=== PATIENT | male | born 1985 | race American Indian/Alaskan Native ===

== ENCOUNTER 2018-12-31 04:46 | Inpatient (IN) | payer OTHER ==
--- NOTE | 2018-12-31 05:16 | XRay Report ---
CHEST 1 VIEW INDICATION / CLINICAL INFORMATION: Chest Pain. COMPARISON: None available. FINDINGS: SUPPORT DEVICES: None. HEART / MEDIASTINUM: No significant abnormality. LUNGS / PLEURA: No significant pulmonary or pleural abnormality. No pneumothorax. ADDITIONAL FINDINGS: No significant additional findings. IMPRESSION: 1. No acute findings. Signer Name: Zaheer Schreiber MD Signed: 12/31/2018 5:12 AM Workstation Name: [id number]
[2018-12-31 05:30] LABS: Basophils # (Auto) 0.1 K/mm3 (0.0-0.1); Basophils % (Auto) 0.5 % (0.0-1.8); Eosinophils # (Auto) 0.5 K/mm3 (0.0-0.4); Eosinophils % (Auto) 3.6 % (0.0-4.3); Hematocrit 46.6 % (35.5-45.6); Hemoglobin 15.9 gm/dl (11.8-15.2); Lymphocytes # (Auto) 2.2 K/mm3 (1.2-5.4); Lymphocytes % (Auto) 17.2 % (13.4-35.0); Mean Corpuscular HGB Conc 34 % (32-34); Mean Corpuscular Volume 89 fl (84-94); Monocytes # (Auto) 0.9 K/mm3 (0.0-0.8); Monocytes % (Auto) 7.3 % (0.0-7.3); Platelet Count 228 K/mm3 (140-440); Red Blood Count 5.26 M/mm3 (3.65-5.03); Red Cell Distribution Width 14.3 % (13.2-15.2)
[2018-12-31 05:47] LABS: BUN/Creatinine Ratio 13; Blood Urea Nitrogen 15 mg/dL (9-20); Hemolysis Index 8
[2018-12-31] MEDS ORDERED: ASPIRIN PO ONE (06:28)
[2018-12-31] MEDS ORDERED: TORADOL IV ONE (06:28)
--- NOTE | 2018-12-31 06:44 | Emergency Department Report ---
ED Chest Pain HPI - General Chief Complaint: Chest Pain Stated Complaint: LT ARM PAIN CHEST PAIN Time Seen by Provider: 12/31/18 06:13 Source: patient Mode of arrival: Ambulatory Limitations: No Limitations - History of Present Illness Initial Comments: 33-year-old male came to the emergency department he had substernal chest tightness for less than admitted at 9 PM last night. His EKG was reviewed by my predecessor. It does have some significant abnormalities. There is no comparison EKG. Patient stated that the chest pain resolved in less than 1 minute. Later on he began to experience a soreness in his left arm. He'll tentatively called any weakness. Then he stated that he couldn't straighten out his arm because of pain but really didn't have any paralysis. He states the pain in his arm is augmented by arm movement. He states the arm symptoms are ongoing. He denies nausea vomiting sweating cough difficulty in breathing leg swelling or pain. The patient states that he flew back from [place] November 27. Does not refer any symptoms prior to last night. This not report any chest pain workup before. The patient has a history of atrial fibrillation treated with cardioversion at [facility] about a year ago. I have requested records. He was on a blood thinner for some time. He is currently taking amlodipine and metoprolol for hypertension. He does not report any family history of known coronary artery disease or venous thromboembolism. MD Complaint: chest pain -: Gradual Onset: during rest Pain Location: substernal Pain Radiation: other (not radiating but later left arm pain) Severity: moderate Quality: tightness Consistency: now resolved Improves With: nothing Worsens With: movement (arm pain with movement) re: denies: nausea, vomting, diaphoresis, dyspnea, sense of impending doom Other Symptoms: denies: cough, fever, syncope, rash, acid taste in mouth, leg swelling, palpitations, burping Treatments Prior to Arrival: none Aspirin use within the Past 7 Days: (0) No - Related Data Allergies Allergy/AdvReac Type Severity Reaction Status Date / Time No Known Allergies Allergy Unverified 12/31/18 04:55 Heart Score - HEART Score History: Moderately suspicious EKG: Non-specific Age: < 45 Risk factors: 1-2 risk factors Troponin: < normal limit HEART Score: 3 - Critical Actions Critical Actions: 0-3 pts:0.9-1.7%risk of adverse cardiac event.Candidate for discharge ED Review of Systems ROS: Stated complaint: LT ARM PAIN CHEST PAIN Other details as noted in HPI Constitutional: denies: chills, fever Eyes: denies: eye pain, eye discharge, vision change ENT: denies: ear pain, throat pain Respiratory: denies: cough, shortness of breath, wheezing Cardiovascular: chest pain. denies: palpitations Endocrine: no symptoms reported Gastrointestinal: denies: abdominal pain, nausea, diarrhea Genitourinary: denies: urgency, dysuria Musculoskeletal: as per HPI. denies: back pain, joint swelling, arthralgia Skin: denies: rash, lesions Neurological: denies: headache, weakness, paresthesias Psychiatric: denies: anxiety, depression Hematological/Lymphatic: denies: easy bleeding, easy bruising ED Past Medical Hx - Past Medical History Previous Medical History?: Yes Additional medical history: AFIB - Surgical History Past Surgical History?: No - Social History Smoking Status: Never Smoker Substance Use Type: Alcohol, Marijuana ED Physical Exam - General Limitations: No Limitations General appearance: alert, in no apparent distress - Head Head exam: Present: atraumatic, normocephalic - Eye Eye exam: Present: normal appearance. Absent: scleral icterus - ENT ENT exam: Present: mucous membranes moist - Neck Neck exam: Present: normal inspection - Respiratory Respiratory exam: Present: normal lung sounds bilaterally. Absent: respiratory distress - Cardiovascular Cardiovascular Exam: Present: regular rate, normal rhythm. Absent: systolic murmur, diastolic murmur, rubs, gallop - GI/Abdominal GI/Abdominal exam: Present: soft, normal bowel sounds. Absent: distended, tenderness, guarding, rebound - Rectal Rectal exam: Present: deferred - Extremities Exam Extremities exam: Present: normal inspection, full ROM, tenderness (tenderness on range of motion but not to palpation. No swelling), normal capillary refill (pulses normal neurovascular exam is normal), other (arm was sore with range of motion which is full). Absent: pedal edema, joint swelling, calf tenderness - Back Exam Back exam: Present: normal inspection - Neurological Exam Neurological exam: Present: alert, oriented X3, CN II-XII intact. Absent: motor sensory deficit - Psychiatric Psychiatric exam: Present: normal affect, normal mood - Skin Skin exam: Present: warm, dry, intact, normal color. Absent: rash ED Course Vital Signs 12/31/18 12/31/18 12/31/18 04:52 06:12 06:16 Temperature 98.4 F Pulse Rate 94 H 87 94 H Respiratory 20 21 11 L Rate Blood Pressure 136/69 148/72 O2 Sat by Pulse 98 97 96 Oximetry 12/31/18 12/31/18 12/31/18 06:30 06:46 07:00 Temperature Pulse Rate 89 88 87 Respiratory 17 7 L 10 L Rate Blood Pressure 148/81 148/81 148/81 O2 Sat by Pulse 99 99 99 Oximetry 12/31/18 12/31/18 07:30 07:54 Temperature 98.7 F Pulse Rate 75 Respiratory 14 Rate Blood Pressure 114/52 O2 Sat by Pulse 97 Oximetry - Reevaluation(s) Reevaluation #1: EKGs have been reviewed by Dr. Burroughs, the professor of german. He agrees that they're not consistent with STEMI. I am attempting to obtain any comparison EKG from [facility] as well as the patient's records. He will be admitted to the hospitalist service for further care and evaluation. Further laboratory study is pending. 12/31/18 06:48 Reevaluation #2: Discussed with hospitalist. Additional labs are negative. Awaiting previous records/EKG from [facility]. 12/31/18 08:02 LEO score - Leo Score Age > 65: (0) No Aspirin use within the Past 7 Days: (0) No 3 or more CAD Risk Factors: (0) No 2 or more Angina events in past 24 hrs: (0) No Known CAD with more than 50% Stenosis: (0) No Elevated Cardiac Markers: (0) No ST Deviation Greater than 0.5mm: (0) No LEO Score: 0 ED Medical Decision Making - Lab Data Result diagrams: 12/31/18 05:08 12/31/18 05:08 Laboratory Results - last 24 hr 12/31/18 12/31/18 05:08 05:08 WBC 13.0 H RBC 5.26 H Hgb 15.9 H Hct 46.6 H MCV 89 MCH 30 MCHC 34 RDW 14.3 Plt Count 228 Lymph % (Auto) 17.2 [place] % (Auto) 7.3 Eos % (Auto) 3.6 Baso % (Auto) 0.5 Lymph # 2.2 [place] # 0.9 H Eos # 0.5 H Baso # 0.1 Seg Neutrophils % 71.4 H Seg Neutrophils # 9.2 H Sodium 141 Potassium 4.0 Chloride 101.2 Carbon Dioxide 26 Anion Gap 18 BUN 15 Creatinine 1.2 Estimated GFR > 60 BUN/Creatinine Ratio 13 Glucose 131 H Calcium 10.0 Troponin T < 0.010 Laboratory Results - last 24 hr 12/31/18 12/31/18 12/31/18 05:08 05:08 06:54 WBC 13.0 H RBC 5.26 H Hgb 15.9 H Hct 46.6 H MCV 89 MCH 30 MCHC 34 RDW 14.3 Plt Count 228 Lymph % (Auto) 17.2 [place] % (Auto) 7.3 Eos % (Auto) 3.6 Baso % (Auto) 0.5 Lymph # 2.2 [place] # 0.9 H Eos # 0.5 H Baso # 0.1 Seg Neutrophils % 71.4 H Seg Neutrophils # 9.2 H PT 13.0 INR 1.01 APTT 36.2 D-Dimer 203.39 Sodium 141 Potassium 4.0 Chloride 101.2 Carbon Dioxide 26 Anion Gap 18 BUN 15 Creatinine 1.2 Estimated GFR > 60 BUN/Creatinine Ratio 13 Glucose 131 H Calcium 10.0 Magnesium Total Bilirubin Direct Bilirubin Indirect Bilirubin AST ALT Alkaline Phosphatase Total Creatine Kinase CK-MB (CK-2) CK-MB (CK-2) Rel Index Troponin T < 0.010 C-Reactive Protein NT-Pro-B Natriuret Pep Total Protein Albumin Albumin/Globulin Ratio 12/31/18 12/31/18 06:54 06:54 WBC RBC Hgb Hct MCV MCH MCHC RDW Plt Count Lymph % (Auto) [place] % (Auto) Eos % (Auto) Baso % (Auto) Lymph # [place] # Eos # Baso # Seg Neutrophils % Seg Neutrophils # PT INR APTT D-Dimer Sodium Potassium Chloride Carbon Dioxide Anion Gap BUN Creatinine Estimated GFR BUN/Creatinine Ratio Glucose Calcium Magnesium 2.00 Total Bilirubin 0.30 Direct Bilirubin < 0.2 Indirect Bilirubin 0.1 AST 32 ALT 58 H Alkaline Phosphatase 61 Total Creatine Kinase 207 H CK-MB (CK-2) 1.1 CK-MB (CK-2) Rel Index 0.5 Troponin T < 0.010 C-Reactive Protein 0.30 NT-Pro-B Natriuret Pep < 5 Total Protein 8.0 Albumin 4.4 Albumin/Globulin Ratio 1.2 - EKG Data -: EKG Interpreted by Me EKG shows normal: sinus rhythm Rate: normal - EKG Data Interpretation: other (the EKG was interpreted the first before I came co nsidered not consistent with STEMI. EKGs do show J-point/ST elevation in the inferior leads and slightly diffusely. There is no reciprocal aVL depression or T-wave inversion. They are considered to be not consistent with STEMI.) - Radiology Data Radiology results: report reviewed, image reviewed (no acute findings) Critical care attestation.: If time is entered above; I have spent that time in minutes in the direct care of this critically ill patient, excluding procedure time. ED Disposition Clinical Impression: Abnormal EKG Chest pain Qualifiers: Chest pain type: unspecified Qualified Code(s): R07.9 - Chest pain, unspecified Disposition: DC-09 OP ADMIT IP TO THIS HOSP Is pt being admited?: Yes Does the pt Need Aspirin: Yes Condition: Stable Instructions: Chest Pain (ED) Referrals: PRIMARY CARE, [Primary Care Provider] - 3-5 Days Time of Disposition: 08:02
[2018-12-31 07:32] LABS: INR 1.01 (0.87-1.13)
[2018-12-31 07:33] LABS: Partial Thromboplastin Time 36.2 Sec. (24.2-36.6)
[2018-12-31 07:43] LABS: Creatine Kinase MB 1.1 ng/mL (0.0-4.0)
[2018-12-31 07:45] LABS: Alanine Aminotransferase 58 units/L (7-56); Albumin 4.4 g/dL (3.9-5)
[2018-12-31 07:48] LABS: Bilirubin,Direct < 0.2 mg/dL (0-0.2)
[2018-12-31] MEDS ORDERED: NITROSTAT SL PRN (10:19)
[2018-12-31] MEDS ORDERED: SODIUM CHLORIDE FLUSH SYRINGE 10 ML IV PRN (10:19)
[2018-12-31] MEDS ORDERED: MORPHINE IV PRN (10:19)
--- NOTE | 2018-12-31 10:22 | History and Physical Report ---
History of Present Illness Date of examination: 01/07/19 Date of admission: 12/31/18 08:05 Chief complaint: Chest pain History of present illness: 33-year-old male came to the emergency department he had substernal chest tightness for less than admitted at 9 PM last night. His EKG was reviewed by my predecessor. It does have some significant abnormalities. There is no comparison EKG. Patient stated that the chest pain resolved in less than 1 minute. Later on he began to experience a soreness in his left arm. He'll tentatively called any weakness. Then he stated that he couldn't straighten out his arm because of pain but really didn't have any paralysis. He states the pain in his arm is augmented by arm movement. He states the arm symptoms are ongoing. He denies nausea vomiting sweating cough difficulty in breathing leg swelling or pain. The patient states that he flew back from [place] November 27. Does not refer any symptoms prior to last night. This not report any chest pain workup before. The patient has a history of atrial fibrillation treated with cardioversion at [facility] about a year ago. I have requested records. He was on a blood thinner for some time. He is currently taking amlodipine and metoprolol for hypertension. He does not report any family history of known coronary artery disease or venous thromboembolism. Past History Past Medical History: hypertension, other (atrial fib) Past Surgical History: No surgical history Social history: alcohol abuse (occationaly), other (smokes marijuana). denies: smoking Family history: other (GM with HD) Medications and Allergies Allergies Allergy/AdvReac Type Severity Reaction Status Date / Time No Known Allergies Allergy Unverified 12/31/18 04:55 Home Medications Medication Instructions Recorded Confirmed Last Taken Type Albuterol Sulfate [Proair 90 mcg IH Q4HR PRN 12/31/18 12/31/18 12/30/18 History Respiclick] Amlodipine Besylate [Norvasc] 5 mg PO DAILY 12/31/18 12/31/18 12/30/18 History Metoprolol [Lopressor TAB] 50 mg PO DAILY 12/31/18 12/31/18 12/30/18 History Exam - Constitutional Vitals: Temp Pulse Resp BP Pulse Ox 98.7 F 82 18 122/78 98 12/31/18 07:54 12/31/18 09:45 12/31/18 09:45 12/31/18 09:45 12/31/18 09:45 Results - Labs CBC & Chem 7: 12/31/18 05:08 12/31/18 05:08 Labs: Abnormal lab results 12/31/18 12/31/18 12/31/18 Range/Units 05:08 05:08 06:54 WBC 13.0 H (4.5-11.0) K/mm3 RBC 5.26 H (3.65-5.03) M/mm3 Hgb 15.9 H (11.8-15.2) gm/dl Hct 46.6 H (35.5-45.6) % [place] # 0.9 H (0.0-0.8) K/mm3 Eos # 0.5 H (0.0-0.4) K/mm3 Seg Neutrophils % 71.4 H (40.0-70.0) % Seg Neutrophils # 9.2 H (1.8-7.7) K/mm3 Glucose 131 H (75-100) mg/dL ALT 58 H (7-56) units/L Total Creatine Kinase 207 H (55-170) units/L Assessment and Plan Atypical chest pain, r/o ACS Atrial fib rate controlled HTN, stable Asthma, stable DVT Px - admit to tele - trend trop, monitor with EKG - place on aspirin, statin, - stress test 2decho ordered - supportive care, nebs as needed, cardiology consult
[2018-12-31 11:05] LABS: Amphetamine Screen,Urine PRESUMPTIVE NEGATIVE; Benzodiazepines Screen,Urine PRESUMPTIVE NEGATIVE; Cocaine Screen,Urine PRESUMPTIVE NEGATIVE; Methadone Screen,Urine PRESUMPTIVE NEGATIVE; Opiate Screen,Urine PRESUMPTIVE NEGATIVE
[2018-12-31 11:21] LABS: Cannabinoid Screen,Urine PRESUMPTIVE POSITIVE
--- NOTE | 2018-12-31 12:24 | Consultation ---
History of Present Illness Consult date: 12/31/18 Requesting physician: FLORECITA DIAZ Consult reason: chest pain, other (abn ekg) History of present illness: The pt is a 33 YO male with a past medical history of HTN and atrial fibrillation s/p DCCV 11/2017 at [place], asthma. He does not regularly see a rn traveling. He presented with c/o left elbow pain (which was so painful that he could not use or straighten his left arm) for the past 1 day and a bout of chest pain which occurred around 9PM last night. He describes his chest pain as a right sided pressure which lasted for approx 1 minute. Pt denies any SOB, palpitations, n/v, diaphoresis, dizziness or syncope. He is currently taking amlodipine and metoprolol for hypertension. Echo done 11/2017 showed EF 55%, mild LVH, mildly dilated RA, mild TR. Past History Past Medical History: atrial fib, hypertension Medications and Allergies Allergies Allergy/AdvReac Type Severity Reaction Status Date / Time No Known Allergies Allergy Unverified 12/31/18 04:55 Home Medications Medication Instructions Recorded Confirmed Last Taken Type Albuterol Sulfate [Proair 90 mcg IH Q4HR PRN 12/31/18 12/31/18 12/30/18 History Respiclick] Amlodipine Besylate [Norvasc] 5 mg PO DAILY 12/31/18 12/31/18 12/30/18 History Metoprolol [Lopressor TAB] 50 mg PO DAILY 12/31/18 12/31/18 12/30/18 History Active Meds: Active Medications Aspirin (Aspirin) 325 mg PO QDAY MAGI Atorvastatin Calcium (Lipitor) 40 mg PO QHS [facility] Morphine Sulfate (Morphine) 2 mg IV Q5MIN PRN PRN Reason: Chest Pain unrelieved by NTG Nitroglycerin (Nitrostat) 0.4 mg SL Q5M PRN PRN Reason: Chest Pain Sodium Chloride (Sodium Chloride Flush Syringe 10 Ml) 10 ml IV PRN PRN PRN Reason: LINE FLUSH Review of Systems Constitutional: no weight loss, no weight gain, no fever, no chills, no sweats Ears, nose, mouth and throat: no ear pain, no nose pain, no sinus pressure, no sinus pain Cardiovascular: chest pain, high blood pressure, no orthopnea, no palpitations, no rapid/irregular heart beat, no edema, no syncope, no lightheadedness, no shortness of breath, no dyspnea on exertion Respiratory: no cough, no shortness of breath, no dyspnea on exertion, no congestion, no pleurisy, no pain on inspiration Gastrointestinal: no abdominal pain, no nausea, no vomiting, no diarrhea, no constipation, no change in bowel habits Genitourinary Male: no dysuria, no hematuria, no flank pain, no discharge, no urinary frequency, no urinary hesitancy Musculoskeletal: other (left arm pain), no neck stiffness, no neck pain, no low back pain, no shooting leg pain, no leg numbness/tingling, no redness of joints Integumentary: no rash, no pruritis, no redness, no sores, no wounds Neurological: no head injury, no paralysis, no weakness, no parathesias, no numbness, no tingling, no seizures, no syncope Psychiatric: no anxiety Endocrine: no cold intolerance, no heat intolerance Hematologic/Lymphatic: no easy bruising, no easy bleeding Allergic/Immunologic: no urticaria, no wheezing Physical Examination Vital Signs Temp Pulse Resp BP Pulse Ox 98.4 F 94 H 20 136/69 98 12/31/18 04:52 12/31/18 04:52 12/31/18 04:52 12/31/18 04:52 12/31/18 04:52 General appearance: no acute distress HEENT: Positive: PERRL, Normocephaly, Mucus Membranes Moist Neck: Positive: neck supple, trachea midline Cardiac: Positive: Reg Rate and Rhythm, S1/S2 Lungs: Positive: Decreased Breath Sounds Neuro: Positive: Grossly Intact Abdomen: Negative: Tender Skin: Negative: Rash Musculoskeletal: No Pain Extremities: Absent: edema Results 12/31/18 05:08 12/31/18 05:08 Cardiac Enzymes 12/31/18 Range/Units 06:54 AST 32 (5-40) units/L CK-MB (CK-2) 1.1 (0.0-4.0) ng/mL Coagulation 12/31/18 Range/Units 06:54 PT 13.0 (12.2-14.9) Sec. INR 1.01 (0.87-1.13) APTT 36.2 (24.2-36.6) Sec. CBC 12/31/18 Range/Units 05:08 WBC 13.0 H (4.5-11.0) K/mm3 RBC 5.26 H (3.65-5.03) M/mm3 Hgb 15.9 H (11.8-15.2) gm/dl Hct 46.6 H (35.5-45.6) % Plt Count 228 (140-440) K/mm3 Lymph # 2.2 (1.2-5.4) K/mm3 [place] # 0.9 H (0.0-0.8) K/mm3 Eos # 0.5 H (0.0-0.4) K/mm3 Baso # 0.1 (0.0-0.1) K/mm3 Comprehensive Metabolic Panel 12/31/18 12/31/18 Range/Units 05:08 06:54 Sodium 141 (137-145) mmol/L Potassium 4.0 (3.6-5.0) mmol/L Chloride 101.2 (98-107) mmol/L Carbon Dioxide 26 (22-30) mmol/L BUN 15 (9-20) mg/dL Creatinine 1.2 (0.8-1.5) mg/dL Glucose 131 H (75-100) mg/dL Calcium 10.0 (8.4-10.2) mg/dL Direct Bilirubin < 0.2 (0-0.2) mg/dL Indirect Bilirubin 0.1 mg/dL AST 32 (5-40) units/L ALT 58 H (7-56) units/L Alkaline Phosphatase 61 (35-129) units/L Total Protein 8.0 (6.3-8.2) g/dL Albumin 4.4 (3.9-5) g/dL - Imaging and Cardiology Echo: report reviewed (11/2017 showed EF 55%, mild LVH, mildly dilated RA, mild TR. ) EKG: report reviewed, image reviewed EKG interpretations - Telemetry EKG Rhythm: Sinus Rhythm - EKG Sinus rhythms and dysrhythmias: sinus rhythm Chamber hypertrophy or enlargement: left ventricular hypertro Repolarization changes or abnormalities: repolarization abn secondary to ventricular hypertrophy Assessment and Plan Pt presented with a bout of atypical cp and left arm pain. His ECG was noted to be abnormal in ED and Dr. Burroughs was contacted for possible STEMI, ECG not c/w STEMI, changes are likely secondary to LVH. ECG here appears similar to prior ECGs at [place]. Randy negative for AMI. No prior ischemic evaluation on record. Will plan for lexiscan MPI stress test in AM. NPO after MN. The patient has been seen in conjunction with Dr. Apodaca who agrees with the assessment and plan of care. - Patient Problems (1) Chest pain Current Visit: Yes Status: Resolved Qualifiers: Chest pain type: unspecified Qualified Code(s): R07.9 - Chest pain, unspecified (2) Left arm pain Current Visit: Yes Status: Acute (3) HTN (hypertension) Current Visit: Yes Status: Chronic (4) Abnormal EKG Current Visit: Yes Status: Chronic (5) History of atrial fibrillation Current Visit: Yes Status: Chronic
[2019-01-01] MEDS ORDERED: LEXISCAN IV ONE ×2 (08:02→08:10)
[2019-01-01] MEDS ORDERED: ASPIRIN PO SCH (10:00)
--- NOTE | 2019-01-01 10:47 | Progress Note ---
Assessment and Plan cp mi r/o moribid obeisty htn asthma p afib rec: normal myocardial perfusion scan and cont beta amber and pain management and followup with pcp Subjective Date of service: 01/01/19 Principal diagnosis: cp Interval history: pt chest pain is better Objective Vital Signs Temp Pulse Resp BP Pulse Ox 01/01/19 10:04 143/64 01/01/19 10:02 143/77 01/01/19 10:00 146/77 01/01/19 09:58 153/73 01/01/19 09:56 151/74 01/01/19 09:55 151/80 01/01/19 09:28 144/75 01/01/19 03:57 98.0 F 68 18 117/50 97 01/01/19 00:00 71 12/31/18 23:20 98.0 F 86 20 138/64 98 12/31/18 21:04 18 12/31/18 19:05 98.4 F 79 20 145/57 96 12/31/18 17:45 98.2 F 18 142/70 - Physical Examination HEENT: Positive: PERRL, Normocephaly, Mucus Membranes Moist Neck: Positive: neck supple, trachea midline Cardiac: Positive: Reg Rate and Rhythm Lungs: Positive: clear to auscultation Neuro: Positive: Grossly Intact Abdomen: Negative: Tender Skin: Negative: Rash Musculoskeletal: No Pain Extremities: Absent: edema - Imaging and Cardiology EKG: report reviewed, image reviewed Echo: report reviewed (11/2017 showed EF 55%, mild LVH, mildly dilated RA, mild TR. ) - Telemetry EKG Rhythm: Sinus Rhythm - EKG Sinus rhythms and dysrhythmias: sinus rhythm Chamber hypertrophy or enlargement: left ventricular hypertro Repolarization changes or abnormalities: repolarization abn secondary to ventricular hypertrophy
[2019-01-01] MEDS ORDERED: LOPRESSOR PO SCH (12:00)
[2019-01-01] MEDS ORDERED: AFLURIA QUAD 2019-2020 (3YR UP) IM ONE (12:00)
[2019-01-01] MEDS ORDERED: HALFPRIN EC PO SCH (12:00)
--- NOTE | 2019-01-01 13:36 | Treadmill Report ---
REASON FOR STUDY: Chest pain. IMAGING PROTOCOL: Single isotope. IMAGING PROTOCOL: The patient received 10 mCi of Technetium 99m Tetrofosmin for resting image and 28 mCi of Technetium 99m Tetrofosmin for stress imaging. The imaging for the whole procedure was completed 30-90 minutes following the initial injection of Technetium 99m Tetrofosmin. The SPECT imaging in the 180 degree arc was performed in the right anterior oblique projection. Computerized reconstruction of the images was performed for analysis. IMAGING RESULTS: Normal cavity size from stress to rest. Normal distribution of radionuclide in the anterior, inferior, septal, and apical regions. Gated SPECT, EF 61% with no wall motion abnormality. The patient infused Lexiscan with no EKG changes. SUMMARY: 1. Negative Lexiscan EKG. 2. Normal rest and stress myocardial perfusion scan. No significant stress ischemia. No wall motion abnormality. Gated SPECT, EF 61%. JOB# [id number] TREASURE/AASHISH
--- NOTE | 2019-01-01 15:31 | Discharge Summary ---
Providers - Providers Date of Admission: 12/31/18 08:05 Date of discharge: 01/01/19 Attending physician: YARELIS PEARL 12/31/18 Consult to Cardiac Rehabilitation [CONS] Routine Reason For Exam: Phase I 12/31/18 08:03 Consult to Cardiology [CONS] Urgent Consulting Provider: CATHERINE BURROUGHS Reason For Exam: normal EKG, chest pain, reviewed by Dr. 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 Patient was evaluated in the ER, initial cardiac enzyme and EKG was unremarkable, chest x- ray showed no infiltrates. Patient was admitted and underwent myocardial stress test which was normal. Patient was then discharged home in stable condition with outpatient follow-up. Discharge Diagnosis: Atypical chest pain, ruled out ACS Atrial fib rate controlled, beta amber placed HTN, stable Asthma, stable Leukocytosis, likely reactive, no fever no infiltrates DVT Px Disposition: - TO HOME OR SELFCARE Time spent for discharge: 34 minutes Core Measure Documentation - Palliative Care Palliative Care/ Comfort Measures: Not Applicable - Core Measures Any of the following diagnoses?: none Exam - Constitutional Vitals: Temp Pulse Resp BP Pulse Ox 98.3 F 71 18 134/64 97 01/01/19 10:45 01/01/19 11:50 01/01/19 10:45 01/01/19 11:50 01/01/19 10:45 General appearance: Present: no acute distress, well-nourished - EENT Eyes: Present: PERRL ENT: hearing intact, clear oral mucosa - Neck Neck: Present: supple, normal ROM - Respiratory Respiratory effort: normal Respiratory: bilateral: CTA - Cardiovascular Heart Sounds: Present: S1 & S2. Absent: rub, click - Extremities Extremities: pulses symmetrical, No edema Peripheral Pulses: within normal limits - Abdominal General gastrointestinal: Present: soft, non-tender, non-distended, normal bowel sounds - Integumentary Integumentary: Present: clear, warm, dry - Musculoskeletal Musculoskeletal: gait normal, strength equal bilaterally - Psychiatric Psychiatric: appropriate mood/affect, intact judgment & insight - Neurologic Neurologic: CNII-XII intact, moves all extremities Plan Activity: advance as tolerated Weight Bearing Status: Weight Bear as Tolerated Diet: low fat, low salt Follow up with: PRIMARY CARE, [Primary Care Provider] - 3-5 Days CATHERINE BURROUGHS MD [Staff Physician] - 7 Days FELISA CAI MD [Staff Physician] - 7 Days
[2019-01-01 15:55] LABS: Hemoglobin 14.8 gm/dl (11.8-15.2); Mean Corpuscular HGB Conc 34 % (32-34); Mean Corpuscular Volume 88 fl (84-94); Platelet Count 234 K/mm3 (140-440); Red Blood Count 4.88 M/mm3 (3.65-5.03); Red Cell Distribution Width 14.2 % (13.2-15.2)
[2019-01-01 16:14] VITALS: BP 131/66
== END 2019-01-01 17:45 | disposition home or self-care (01) | DRG 313 ==
LOC: ED 04:46 → 4A 08:05
PROVIDERS: ADMIT Internal Medicine; ATTEND Internal Medicine
DX: R07.89 Other chest pain (principal); Z68.41 Body mass index [BMI] 40.0-44.9, adult; R94.31 Abnormal electrocardiogram [ECG] [EKG]; I10 Essential (primary) hypertension; I48.91 Unspecified atrial fibrillation; J45.909 Unspecified asthma, uncomplicated; D72.829 Elevated white blood cell count, unspecified; E66.01 Morbid (severe) obesity due to excess calories; F10.10 Alcohol abuse, uncomplicated; F12.90 Cannabis use, unspecified, uncomplicated; Z79.899 Other long term (current) drug therapy
CPT/HCPCS: 36415; 71045; 78452; 80048; 80076; 80307; 82550; 82553; 83735; 83880; 84484; 85025; 85027; 85379; 85610; 85652; 85730; 86140; 87086; 87116; 90686; 93005; 93010; 93017; 96374; G0378; A9270-GY; A9502; J1885; J2785